=== PATIENT | female | born 1945 | race Caucasian/White ===

== ENCOUNTER 2018-04-23 09:59 | Outpatient (CLI) | payer MEDICARE ==
--- NOTE | 2018-04-23 15:44 | RAD ---
PA AND LATERAL CHEST: Indication: Pre-operative evaluation. Comparison: None. FINDINGS: Lungs are clear. Heart size is normal. No acute osseous abnormality is evident. IMPRESSION: No acute cardiopulmonary abnormality. POS: [facility]
[2018-04-23 15:56] LABS: #Basophils 0.1 thou/uL (0.0-0.2); #Eosinphils 0.1 thou/uL (0.0-0.7); #Lymphocytes 2.4 thou/uL (1.20-3.40); #Monocytes 0.4 thou/uL (0.11-0.59); #Neutrophils 3.6 thou/uL (1.40-6.50); %Basophils 1.1 % (0.0-1.0); %Eosinophils 1.6 % (0.0-10.0); %Lymphocytes 36.6 % (21.0-51.0); %Monocytes 6.6 % (0.0-10.0); %Neutrophils 54.1 % (42.0-75.0); Hemoglobin 14.3 g/dL (12.0-16.0); Mean Corpuscular HGB CONC 32.2 g/dL (32.0-36.0); Mean Corpuscular Hemoglobin 29.1 pg (27.0-31.0); Mean Corpuscular Volume 90.4 fL (78.0-98.0); Mean Platelet Volume 7.6 fL (7.4-10.4); Platelet Count 299 thou/uL (130-400); RBC Distribution Width 12.5 % (11.5-14.5); White Blood Cell (WBC) Count 6.6 thou/uL (4.8-10.8)
[2018-04-23 16:17] LABS: ALT (SGPT) 21 U/L (8-55); AST (SGOT) 15 U/L (5-34); Albumin 4.4 g/dL (3.4-4.8); Alkaline Phosphatase 83 U/L (40-150); Anion Gap 13 mmol/L (10-20); BUN (Urea Nitrogen) 19 mg/dL (9.8-20.1); Bilirubin, Total 0.4 mg/dL (0.2-1.2); Calc. Creatinine Clearance 0 mL/min (70-130); Calcium 11.4 mg/dL (7.8-10.44); Carbon Dioxide 25 mmol/L (23-31); Chloride 107 mmol/L (98-107); Estimated GFR-MDRD 67; Globulin 2.4 g/dL (2.4-3.5); Glucose 89 mg/dL (83-110); Potassium 4.2 mmol/L (3.5-5.1); Protein, Total 6.8 g/dL (6.0-8.3); Sodium 141 mmol/L (136-145)
--- NOTE | 2018-04-24 14:58 | EKG ---
Test Reason : Blood Pressure : / mmHG Vent. Rate : 069 BPM Atrial Rate : 069 BPM P-R Int : 178 ms QRS Dur : 080 ms QT Int : 388 ms P-R-T Axes : 049 049 061 degrees QTc Int : 415 ms Normal sinus rhythm Low voltage QRS Cannot rule out Anterior infarct , age undetermined Abnormal ECG No previous ECGs available Confirmed by ALEIDA LOCO ([id number]) on 04/24/2018 2:58:40 PM Referred By: MAGGI Confirmed By:ALEIDA LOCO
== END 2018-04-23 10:00 | disposition home or self-care (01) ==
LOC: LABBT 09:59
PROVIDERS: ATTEND Surgery
DX: Z01.818 Encounter for other preprocedural examination (principal); C50.912 Malignant neoplasm of unspecified site of left female breast
CPT/HCPCS: 71046; 80053; 85025; 93005; 93010

== ENCOUNTER 2018-04-27 06:47 | Day surgery (SDC) | payer MEDICARE ==
[2018-04-23 14:47] VITALS: BMI 28.5
--- NOTE | 2018-04-27 10:23 | MMO ---
MAMMOGRAPHIC GUIDED LEFT BREAST NEEDLE/WIRE LOCALIZATION PROCEDURE: Date: 04/27/18 CLINICAL HISTORY: Left breast cancer, upper inner left breast quadrant. PROCEDURE: Informed consent was obtained and the patient was escorted to the procedural suite. The patient's tariq ast was placed into mammographic compression and the mass of interest with adjacent clip was localize d. After standard sterile prepping and draping, and topical anesthesia were achieved, a 7.0 cm [place] needle with internal wire was advanced through the mass of interest adjacent to the marking clip. Wir e was deployed. Tangential mammographic imaging was then performed to confirm appropriate placement. After appropriate placement was achieved and documented with imaging, the wire and needle were secure d to the left breast and the patient was transferred to the surgery department to undergo excisional biopsy. IMPRESSION: Technically successful needle/wire localization under mammographic guidance of mass within the left b reast. POS: [facility]
[2018-04-27] MEDS ORDERED: Bupivacaine HCl 0.5%/Epinephrine 1:200,000/PF 30 ml Vial ONE (11:15)
[2018-04-27] MEDS ORDERED: Lidocaine 2% PF 5 ML VIAL ONE (11:15)
[2018-04-27] MEDS ORDERED: Isosulfan Blue 50 MG/5 ML VIAL ONE (11:15)
--- NOTE | 2018-04-27 11:25 | NM ---
LYMPHOSCINTIGRAPHY: INDICATIONS: Lymphoscintigraphy procedure performed prior to lumpectomy procedures for breast cancer. TECHNIQUE: Technetium labeled sulfur colloid 100 millicuries was injected subcutaneously in the 12 o'clock, 3 o' clock, 6 o'clock, and 9 o'clock positions, in the periareolar region. Subsequent imaging obtained. FINDINGS: The images in the AP and lateral projections show activity in two lymph nodes, in the upper outer reagan drant. These lymph nodes were marked on the skin by the technologist. The patient was sent to [facility] in good condition. POS: [id number]
[2018-04-27] MEDS ORDERED: Fentanyl 100 MCG/2 ML VIAL ONE (11:30)
[2018-04-27] MEDS ORDERED: diphenhydrAMINE 50 MG/ML VIAL ONE (14:01)
--- NOTE | 2018-04-27 15:02 | MMO ---
SURGICAL SPECIMEN RADIOGRAPH: COMPARISON: Needle localization mammogram dated 04/27/2018. Left unilateral diagnostic mammogram dated 03/24/2018. IMPRESSION: The submitted specimen contains a clip, a mass, and a wire. Findings were called to Dr. Amin in the operating room at 1:02 p.m. on 04/27/2018. CODE CR POS: [facility]
[2018-04-27] MEDS ORDERED: PHENYLEPHRINE-NS 100 MCG/ML 10 ML SYRINGE ONE (17:07)
[2018-04-27] MEDS ORDERED: PROPOFOL 200 MG/20 ML VIAL ONE (17:07)
[2018-04-27] MEDS ORDERED: Ondansetron PF 4 MG/2 ML Vial ONE (17:07)
[2018-04-27] MEDS ORDERED: Lidocaine 1% PF 5 ML VIAL ONE (17:07)
--- NOTE | 2018-04-28 09:00 | OP ---
DATE OF PROCEDURE: 04/27/2018 PREOPERATIVE DIAGNOSIS: Left breast cancer. PROCEDURE PERFORMED: Left partial mastectomy, sentinel lymph node biopsy, lymphoscintigraphy. INDICATIONS: A 73-year-old female who had an abnormal mammogram. She underwent a core biopsy that was positive for infiltrating ductal carcinoma. It was not palpable. FINDINGS: Successful removal by specimen mammogram. Three sentinel nodes were found, all negative by touch prep. DESCRIPTION OF PROCEDURE: After informed consent was obtained, the patient was taken to the operating room and given general anesthesia, placed in supine position. She had undergone placement of a needle localization wire in mammography. Also injection of radionucleotide in the nuclear medicine department. The Lymphazurin was infiltrated subareolar and peritumoral and the breast was prepped and draped in usual fashion. The Neoprobe was used. Baseline was performed with counts around 200, transcutaneous counts of 600 were found. A transverse axillary incision was performed and in vivo counts of 3000 were found, the node was dissected out, ex vivo counts of 6000, this was sent as a sentinel node, in-vivo counts of 700 on the 2nd node, ex vivo counts of 1200 and the 3rd node of 600 and 1200. Hemostasis achieved with electrocautery. Efferent and efferent lymphatics were ligated with 3-0 Vicryl suture. Hemostasis assured, awaiting touch prep. Then, a curvilinear incision was performed. Subcu divided sharply in the left breast and a core breast tissue excised sharply around the needle tract. The specimen was marked with a black suture anterior, needle superior, blue suture lateral, went to mammography revealing it did contain the clip, the mass, and the wire and sent to pathology for further analysis. Hemostasis achieved with electrocautery. Wound thoroughly irrigated. Subcu reapproximated with interrupted 3-0 Vicryl. Skin closed with a running subcuticular 4-0 Rapide. Steri-Strips applied. Sterile bandage applied. The patient tolerated the procedure well, transferred to Recovery in good condition. Sponge and needle count verified correct x2. Job ID: [id number]
== END 2018-04-27 14:58 | disposition home or self-care (01) ==
LOC: SDC 06:47
PROVIDERS: ATTEND Surgery
PROC: 0HBU0ZZ Excision of Left Breast, Open Approach (ICD-10-PCS; principal; 2018-04-27)
PROC: 07B60ZX Excision of Left Axillary Lymphatic, Open Approach, Diagnostic (ICD-10-PCS; 2018-04-27)
DX: C50.212 Malignant neoplasm of upper-inner quadrant of left female breast (principal); E78.00 Pure hypercholesterolemia, unspecified; E11.9 Type 2 diabetes mellitus without complications; I10 Essential (primary) hypertension; Z17.0 Estrogen receptor positive status [ER+]; Z87.891 Personal history of nicotine dependence; Z79.84 Long term (current) use of oral hypoglycemic drugs; Z79.899 Other long term (current) drug therapy; Z91.040 Latex allergy status
CPT/HCPCS: 19281; 19301; 38525; 38900; 76098; 78195; 82962; 88307; 88333; 88334; 88341; 88342; A9541; Q9968; 36416; J0670; J1200; J2001; J2405; J2704; J3010